=== PATIENT | male | born 1990 | race Two or more races ===

== ENCOUNTER 2017-06-03 12:14 | Emergency (ER) | payer MEDICAID ==
[~2017-06-03] VITALS: Ht 177.8 cm; Wt 81.6 kg
[2017-06-03 13:11] VITALS: BP 142/82
== END 2017-06-03 14:02 | disposition home or self-care (01) ==
LOC: ER 12:14
DX: S01.01XD Laceration without foreign body of scalp, subsequent encounter (principal)

== ENCOUNTER 2022-05-19 12:27 | Emergency (ER) | payer MEDICAID ==
[~2022-05-19] VITALS: Ht 177.8 cm; Wt 84.0 kg
[2022-05-19 15:30] VITALS: BP 147/107
[2022-05-19] MEDS ORDERED: TETANUS-DIPTH-ACEL PERTUSSIS 0.5ML SYR Tdap IM ONE (16:00)
[2022-05-19] MEDS ORDERED: IBUP800T26 PO (16:36)
[2022-05-19] MEDS ORDERED: AZIT4SOL RIGHTEYE (16:36)
== END 2022-05-19 16:37 | disposition home or self-care (01) ==
LOC: ER 12:27
DX: T26.82XA Corrosions of other specified parts of left eye and adnexa, initial encounter (principal); F15.90 Other stimulant use, unspecified, uncomplicated; Z59.00 Homelessness unspecified; Y93.89 Activity, other specified; Y92.89 Other specified places as the place of occurrence of the external cause; Y99.8 Other external cause status
CPT/HCPCS: 90471; 90715